=== PATIENT | male | born 1955 | race Caucasian/White ===

== ENCOUNTER 2018-02-26 13:08 | Emergency (ER) | payer BC ==
[~2018-02-26] VITALS: Ht 172.7 cm; Wt 90.2 kg
[~2018-02-26 13:08] MED LIST: CELEBREX200 MG PO; DEXILANT60 MG PO; ENDOCET 5-3251 EACH PO; IRON325 M1 PO; LOVENOX40 MG/0.4 SC; METHOCARBAMOL500 MG PO; MONOPRIL10 MG PO; NEXIUM40 MG PO; OXYCONTIN10 MG PO
[2018-02-26 14:12] LABS: HEMATOCRIT 38.9 % (38.0-50.0); HEMOGLOBIN 13.1 G/DL (12.5-16.6); MCH 29.9 PG (29.0-34.0); MCHC 33.7 G/DL (30.0-36.0); MCV 88.8 FL (86-99); PLATELET COUNT 115 K/uL (156-360); RBC DIS.WIDTH-CV 13.1 % (11.8-14.6); RBC DIS.WIDTH-SD 42.8 % (39-53); RED BLOOD COUNT 4.38 M/uL (4.00-5.50); WHITE BLOOD COUNT 4.9 K/uL (4.1-10.2)
[2018-02-26 14:21] LABS: CHLORIDE 103 mEq/L (99-109); POTASSIUM 4.3 mEq/L (3.7-5.4); SODIUM 141 mEq/L (136-147)
[2018-02-26 14:23] LABS: GLUCOSE 138 mg/dL (70-99)
[2018-02-26 14:26] LABS: GFR ESTIMATE (CALCULATED) > 59 mL/min/ (58.99-99999)
[2018-02-26 14:27] LABS: UREA NITROGEN (BUN) 13 mg/dL (9-23)
[2018-02-26 14:34] LABS: TROP-I INTERPRETATION NEGATIVE; TROPONIN-I < 0.01 ng/mL (0.0-0.30)
[2018-02-26] MEDS ORDERED: CARAFATE1 GM PO (15:16)
[2018-02-26 15:28] VITALS: BP 137/79
== END 2018-02-26 15:28 | disposition home or self-care (01) ==
LOC: EME 13:08
DX: K21.9 Gastro-esophageal reflux disease without esophagitis (principal); R07.9 Chest pain, unspecified; I10 Essential (primary) hypertension
CPT/HCPCS: 71046; 80048; 84484; 85027; 93005; 99281; 99284